=== PATIENT | female | born 1990 | race American Indian/Alaskan Native ===

== ENCOUNTER 2016-08-31 09:04 | Emergency (ER) | payer SELFPAY ==
[2016-08-31 10:03] VITALS: BP 114/71
[2016-08-31 12:36] LABS: Bacteria,Urine 1+ /HPF (Negative); Bilirubin,Urine NEG (Negative); Blood,Urine SM (Negative); Ketones,Urine NEG (Negative); Leukocyte Esterase,Urine LG (Negative); Mucus,Urine 2+ /HPF; Nitrite,Urine NEG (Negative); Urobilinogen,Urine < 2.0 mg/dL (<2.0)
--- NOTE | 2016-08-31 13:53 | Emergency Department Report ---
<ALEXANDRE BRUCE - Last Filed: 08/31/16 17:48> ED Female HPI - General Chief complaint: Urogenital-Female Stated complaint: URINATION PAIN Time Seen by Provider: 08/31/16 13:48 Source: patient Mode of arrival: Ambulatory Limitations: No Limitations - History of Present Illness Complaint: dysuria -: Gradual, days(s) Radiation: suprapubic Severity: mild Severity scale (0 -10): 3 Quality: burning Consistency: intermittent Worsens with: urination Associated Symptoms: dysuria. denies: vaginal discharge, vaginal bleeding, abdominal pain, nausea/vomiting, fever/chills, rash - Related Data Previous Rx's Medication Instructions Recorded Last Taken Type HYDROcodone/APAP 5-325 [[place] 1 each PO Q6HR PRN #14 tablet 11/29/14 Unknown Rx 5/325] Ferrous Sulfate [Feosol 325 MG tab] 325 mg PO BID #120 tablet 01/09/15 Unknown Rx Ibuprofen [Motrin 600 MG tab] 600 mg PO Q6H PRN #30 tablet 01/09/15 Unknown Rx oxyCODONE /ACETAMINOPHEN [Percocet 1 tab PO Q4HR PRN #40 tab 01/09/15 Unknown Rx 5/325 mg] Docusate Sodium [Colace] 100 mg PO BID PRN #60 capsule 02/28/16 Unknown Rx Ibuprofen [Motrin] 800 mg PO Q8HR PRN #60 tablet 02/28/16 Unknown Rx oxyCODONE /ACETAMINOPHEN [Percocet 1 tab PO Q6HR PRN #45 tablet 02/28/16 Unknown Rx 5/325] Phenazopyridine [Pyridium] 200 mg PO BID #10 tab 08/31/16 Unknown Rx Sulfamethoxazole/Trimethoprim 1 each PO BID #10 tablet 08/31/16 Unknown Rx [Bactrim DS TAB] Allergies Allergy/AdvReac Type Severity Reaction Status Date / Time No Known Allergies Allergy Verified 07/18/14 18:20 ED Review of Systems ROS: Stated complaint: URINATION PAIN Other details as noted in HPI Constitutional: no symptoms reported Eyes: as per HPI ENT: as per HPI Respiratory: no symptoms reported Gastrointestinal: denies: nausea, vomiting, diarrhea Genitourinary: dysuria. denies: discharge Musculoskeletal: denies: back pain Skin: denies: rash Neurological: denies: headache ED Past Medical Hx - Past Medical History Previous Medical History?: No Hx Hypertension: No Hx Congestive Heart Failure: No Hx Diabetes: No Hx Deep Vein Thrombosis: No Hx Renal Disease: No Hx Sickle Cell Disease: No Hx Seizures: No Hx Asthma: No Hx COPD: No Hx HIV: No - Surgical History Past Surgical History?: Yes Additional Surgical History: X 3 - Social History Smoking Status: Never Smoker Substance Use Type: None - Medications Home Medications: Home Medications Medication Instructions Recorded Confirmed Last Taken Type HYDROcodone/APAP 5-325 [[place] 1 each PO Q6HR PRN #14 tablet 11/29/14 01/07/15 Unknown Rx 5/325] Ferrous Sulfate [Feosol 325 MG tab] 325 mg PO BID #120 tablet 01/09/15 Unknown Rx Ibuprofen [Motrin 600 MG tab] 600 mg PO Q6H PRN #30 tablet 01/09/15 Unknown Rx oxyCODONE /ACETAMINOPHEN [Percocet 1 tab PO Q4HR PRN #40 tab 01/09/15 Unknown Rx 5/325 mg] Docusate Sodium [Colace] 100 mg PO BID PRN #60 capsule 02/28/16 Unknown Rx Ibuprofen [Motrin] 800 mg PO Q8HR PRN #60 tablet 02/28/16 Unknown Rx oxyCODONE /ACETAMINOPHEN [Percocet 1 tab PO Q6HR PRN #45 tablet 02/28/16 Unknown Rx 5/325] Phenazopyridine [Pyridium] 200 mg PO BID #10 tab 08/31/16 Unknown Rx Sulfamethoxazole/Trimethoprim 1 each PO BID #10 tablet 08/31/16 Unknown Rx [Bactrim DS TAB] ED Physical Exam - General Limitations: No Limitations General appearance: alert, in no apparent distress - Eye Eye exam: Present: PERRL, EOMI - ENT ENT exam: Present: normal exam - Neck Neck exam: Present: normal inspection - Respiratory Respiratory exam: Absent: respiratory distress - Cardiovascular Cardiovascular Exam: Present: regular rate - GI/Abdominal GI/Abdominal exam: Present: soft. Absent: distended, tenderness, guarding, rebound, rigid ED Course Vital Signs 08/31/16 10:00 Temperature 98.7 F Pulse Rate 89 Respiratory 18 Rate Blood Pressure 114/71 O2 Sat by Pulse 99 Oximetry Critical care attestation.: If time is entered above; I have spent that time in minutes in the direct care of this critically ill patient, excluding procedure time. ED Disposition Disposition: DISCHARGED TO HOME OR SELFCARE Is pt being admited?: No Condition: Stable Instructions: Urinary Tract Infection in Women (ED) Prescriptions: Phenazopyridine [Pyridium] 200 mg PO BID #10 tab Sulfamethoxazole/Trimethoprim [Bactrim DS TAB] 1 each PO BID #10 tablet Referrals: PRIMARY CARE, [Primary Care Provider] - 3-5 Days Forms: Work/School Release Form(ED) <SARINA SHEETS - Last Filed: 09/01/16 19:20> ED Medical Decision Making - Lab Data Lab Results 08/31/16 Range/Units 11:22 Urine Color Yellow (Yellow) Urine Turbidity Slightly-cloudy (Clear) Urine pH 6.0 (5.0-7.0) Ur Specific [place] 1.029 (1.003-1.030) Urine Protein 30 mg/dl (Negative) mg/dL Urine Glucose (UA) Neg (Negative) mg/dL Urine Ketones Neg (Negative) mg/dL Urine Blood Sm (Negative) Urine Nitrite Neg (Negative) Ur Reducing Substances Not Reportable Urine Bilirubin Neg (Negative) Urine Ictotest Not Reportable Urine Urobilinogen < 2.0 (<2.0) mg/dL Ur Leukocyte Esterase Lg (Negative) Urine WBC (Auto) 68.0 H (0.0-6.0) /HPF Urine RBC (Auto) 6.0 (0.0-6.0) /HPF U Epithel Cells (Auto) 6.0 (0-13.0) /HPF Urine Bacteria (Auto) 1+ (Negative) /HPF Urine Mucus 2+ /HPF Urine HCG, Qual Negative (Negative) Labs 08/31/16 11:22 Urine Color Yellow Urine Turbidity Slightly-cloudy Urine pH 6.0 Ur Specific [place] 1.029 Urine Protein 30 mg/dl Urine Glucose (UA) Neg Urine Ketones Neg Urine Blood Sm Urine Nitrite Neg Ur Reducing Substances Not Reportable Urine Bilirubin Neg Urine Ictotest Not Reportable Urine Urobilinogen < 2.0 Ur Leukocyte Esterase Lg Urine WBC (Auto) 68.0 H Urine RBC (Auto) 6.0 U Epithel Cells (Auto) 6.0 Urine Bacteria (Auto) 1+ Urine Mucus 2+ Urine HCG, Qual Negative Vital Signs 08/31/16 10:00 Temperature 98.7 F Pulse Rate 89 Respiratory 18 Rate Blood Pressure 114/71 O2 Sat by Pulse 99 Oximetry
== END 2016-08-31 14:10 | disposition home or self-care (01) ==
LOC: ED 09:04
DX: R30.0 Dysuria (principal)
CPT/HCPCS: 81001; 81025; 99282

== ENCOUNTER 2016-11-30 18:11 | Emergency (ER) | payer SELFPAY ==
[2016-11-30 18:57] VITALS: BP 111/65
[2016-11-30] MEDS ORDERED: TYLENOL PO ONE (18:58)
--- NOTE | 2016-12-05 16:51 | ED Elopement Review ---
ED Pt Elopement review - Call Back decision Pt Call Back Decision: No action required
== END 2016-11-30 21:30 | disposition left against medical advice (07) ==
LOC: ED 18:11
DX: Z53.21 Procedure and treatment not carried out due to patient leaving prior to being seen by health care provider (principal)

== ENCOUNTER 2017-06-23 09:38 | Emergency (ER) | payer SELFPAY ==
[2017-06-23 09:52] VITALS: BP 108/61
[2017-06-23 10:11] LABS: Basophils % (Auto) 0.4 % (0.0-1.8); Eosinophils % (Auto) 0.4 % (0.0-4.3); Hematocrit 39.1 % (30.3-42.9); Hemoglobin 12.7 gm/dl (10.1-14.3); Lymphocytes # (Auto) 2.3 K/mm3 (1.2-5.4); Mean Corpuscular HGB Conc 32 % (30-34); Mean Corpuscular Volume 79 fl (79-97); Monocytes % (Auto) 9.9 % (0.0-7.3); Platelet Count 387 K/mm3 (140-440); Red Blood Count 4.96 M/mm3 (3.65-5.03); Red Cell Distribution Width 15.2 % (13.2-15.2)
[2017-06-23 10:15] LABS: Mean Corpuscular Hemoglobin 26 pg (28-32)
[2017-06-23 10:23] LABS: BUN/Creatinine Ratio 22; Blood Urea Nitrogen 11 mg/dL (7-17); Calcium 9.3 mg/dL (8.4-10.2); Hemolysis Index 3; Lipase 22 units/L (13-60)
[2017-06-23 11:40] LABS: Bilirubin,Urine NEG (Negative); Blood,Urine NEG (Negative); Color,Urine Yellow (Yellow); Mucus,Urine 1+ /HPF; Nitrite,Urine NEG (Negative); Protein,Urine <15 mg/dL mg/dL (Negative); Urobilinogen,Urine < 2.0 mg/dL (<2.0)
[2017-06-23 11:46] LABS: HCG Qualitative,Urine Negative (Negative)
== END 2017-06-23 14:20 | disposition left against medical advice (07) ==
LOC: ED 09:38
DX: R11.10 Vomiting, unspecified (principal); Z53.21 Procedure and treatment not carried out due to patient leaving prior to being seen by health care provider
CPT/HCPCS: 36415; 80048; 81001; 81025; 83690; 85025

== ENCOUNTER 2017-07-06 11:33 | Emergency (ER) | payer SELFPAY ==
[2017-07-06 12:46] VITALS: BP 114/58
--- NOTE | 2017-07-06 15:00 | Emergency Department Report ---
Blank Doc - Documentation Documentation: Patient is a 26-year-old [place] female who is presenting with sore throat cough congestion for the past 3-4 days. Patient's daughter is ill as well. Patient does have some mild erythema to the posterior pharynx with no exudate there is some mild swelling however. Patient will have a rapid strep done
--- NOTE | 2017-07-06 16:27 | Emergency Department Report ---
- General Chief Complaint: Sore Throat Stated Complaint: FLU LIKE SYMPTOMS Time Seen by Provider: 07/06/17 14:39 Source: patient Mode of arrival: Ambulatory Limitations: No Limitations - History of Present Illness Initial Comments: This is a 26-year-old female nontoxic, well nourished in appearance, no acute signs of distress presents to the ED with c/o of sore throat, productive cough, rhinorrhea, nasal congestion x2 days. Patient described productive cough is yellow/green mucous production. Patient denies any recent travels, long car, recent hospital stays. Patient denies any calf pain or calf tenderness. Patient denies any chest pain, short of breath, hoarseness, drooling, fever, chills, nausea, vomiting, hemoptysis, numbness, tingling, headache or stiff neck. Patient denies any drug allergies or past medical history. MD Complaint: cough, sore throat, rhinorrhea, nasal congestion -: days(s) (2) Severity: mild Severity scale (0 -10): 8 Quality: aching Consistency: constant Improves With: nothing Worsens With: nothing Associated Symptoms: rhinorrhea, nasal congestion, sore throat, cough. denies: fever, chills, myalgias, diaphoresis, headache, stiff neck, chest pain, shortness of breath, abdominal pain, nausea, vomiting, diarrhea, dysuria, rash, confusion, right sweats, weight loss, epistaxis, hoarseness, ear pain Treatments Prior to Arrival: none - Related Data Previous Rx's Medication Instructions Recorded Last Taken Type Ferrous Sulfate [Feosol 325 MG tab] 325 mg PO BID #120 tablet 01/09/15 Unknown Rx oxyCODONE /ACETAMINOPHEN [Percocet 1 tab PO Q4HR PRN #40 tab 01/09/15 Unknown Rx 5/325 mg] Docusate Sodium [Colace] 100 mg PO BID PRN #60 capsule 02/28/16 Unknown Rx Ibuprofen [Motrin] 800 mg PO Q8HR PRN #60 tablet 02/28/16 Unknown Rx oxyCODONE /ACETAMINOPHEN [Percocet 1 tab PO Q6HR PRN #45 tablet 02/28/16 Unknown Rx 5/325] Phenazopyridine [Pyridium] 200 mg PO BID #10 tab 08/31/16 Unknown Rx Sulfamethoxazole/Trimethoprim 1 each PO BID #10 tablet 08/31/16 Unknown Rx [Bactrim DS TAB] Amoxicillin/K Clav Tab [Augmentin 1 each PO BID #10 tablet 04/04/17 Unknown Rx 875MG TAB] HYDROcodone/APAP 5-325 [[place] 1 each PO Q6HR PRN #14 tablet 04/04/17 Unknown Rx 5-325 mg TAB] Ibuprofen [Motrin 600 MG tab] 600 mg PO Q6H PRN #30 tablet 04/04/17 Unknown Rx metroNIDAZOLE [Flagyl TAB] 500 mg PO Q8H 5 Days tablet 04/04/17 Unknown Rx Azithromycin [Zithromax Z-SUSANNA] 250 mg PO DAILY #6 tablet 07/06/17 Unknown Rx Nystas/Diphen/Xyl Visc/Mylanta 30 ml MM Q4H PRN 10 Days ml 07/06/17 Unknown Rx [Magic Mouthwash] Allergies Allergy/AdvReac Type Severity Reaction Status Date / Time No Known Allergies Allergy Verified 04/04/17 12:57 ED Review of Systems ROS: Stated complaint: FLU LIKE SYMPTOMS Other details as noted in HPI Constitutional: denies: chills, fever Eyes: denies: eye pain, eye discharge, vision change ENT: throat pain. denies: ear pain Respiratory: cough. denies: shortness of breath, wheezing Cardiovascular: denies: chest pain, palpitations Endocrine: no symptoms reported Gastrointestinal: denies: abdominal pain, nausea, diarrhea Genitourinary: denies: urgency, dysuria, discharge Musculoskeletal: denies: back pain, joint swelling, arthralgia Skin: denies: rash, lesions Neurological: denies: headache, weakness, paresthesias Psychiatric: denies: anxiety, depression Hematological/Lymphatic: denies: easy bleeding, easy bruising ED Past Medical Hx - Past Medical History Hx Hypertension: No Hx Congestive Heart Failure: No Hx Diabetes: No Hx Deep Vein Thrombosis: No Hx Renal Disease: No Hx Sickle Cell Disease: No Hx Seizures: No Hx Asthma: No Hx COPD: No Hx HIV: No Additional medical history: Childbirth x 4 - Surgical History Additional Surgical History: X 4 - Social History Smoking Status: Never Smoker Substance Use Type: None - Medications Home Medications: Home Medications Medication Instructions Recorded Confirmed Last Taken Type Ferrous Sulfate [Feosol 325 MG tab] 325 mg PO BID #120 tablet 01/09/15 Unknown Rx oxyCODONE /ACETAMINOPHEN [Percocet 1 tab PO Q4HR PRN #40 tab 01/09/15 Unknown Rx 5/325 mg] Docusate Sodium [Colace] 100 mg PO BID PRN #60 capsule 02/28/16 Unknown Rx Ibuprofen [Motrin] 800 mg PO Q8HR PRN #60 tablet 02/28/16 Unknown Rx oxyCODONE /ACETAMINOPHEN [Percocet 1 tab PO Q6HR PRN #45 tablet 02/28/16 Unknown Rx 5/325] Phenazopyridine [Pyridium] 200 mg PO BID #10 tab 08/31/16 Unknown Rx Sulfamethoxazole/Trimethoprim 1 each PO BID #10 tablet 08/31/16 Unknown Rx [Bactrim DS TAB] Amoxicillin/K Clav Tab [Augmentin 1 each PO BID #10 tablet 04/04/17 Unknown Rx 875MG TAB] HYDROcodone/APAP 5-325 [[place] 1 each PO Q6HR PRN #14 tablet 04/04/17 Unknown Rx 5-325 mg TAB] Ibuprofen [Motrin 600 MG tab] 600 mg PO Q6H PRN #30 tablet 04/04/17 Unknown Rx metroNIDAZOLE [Flagyl TAB] 500 mg PO Q8H 5 Days tablet 04/04/17 Unknown Rx Azithromycin [Zithromax Z-SUSANNA] 250 mg PO DAILY #6 tablet 07/06/17 Unknown Rx Nystas/Diphen/Xyl Visc/Mylanta 30 ml MM Q4H PRN 10 Days ml 07/06/17 Unknown Rx [Magic Mouthwash] ED Physical Exam - General Limitations: No Limitations General appearance: alert, in no apparent distress - Head Head exam: Present: atraumatic, normocephalic - Eye Eye exam: Present: normal appearance, PERRL, EOMI Pupils: Present: normal accommodation - ENT ENT exam: Present: mucous membranes moist, TM's normal bilaterally, normal external ear exam - Expanded ENT Exam Expanded Ear exam: Present: normal external inspection Mouth exam: Present: normal external inspection, tongue normal. Absent: drooling, trismus, muffled voice, tongue elevation, laceration Teeth exam: Present: normal inspection Throat exam: Positive: tonsillar erythema, tonsillomegaly (2+), other (Uvula midline. No abscess or swelling. ). Negative: tonsillar exudate, R peritonsillar mass, L peritonsillar mass - Neck Neck exam: Present: normal inspection, full ROM. Absent: tenderness, meningismus, lymphadenopathy, thyromegaly - Respiratory Respiratory exam: Present: normal lung sounds bilaterally. Absent: respiratory distress, wheezes, rales, rhonchi, stridor, chest wall tenderness, accessory muscle use, decreased breath sounds, prolonged expiratory - Cardiovascular Cardiovascular Exam: Present: regular rate, normal rhythm, normal heart sounds. Absent: irregular rhythm, systolic murmur, diastolic murmur, rubs, gallop - GI/Abdominal GI/Abdominal exam: Present: soft, normal bowel sounds. Absent: distended, tenderness, guarding, rebound, rigid, diminished bowel sounds - Rectal Rectal exam: Present: deferred - Extremities Exam Extremities exam: Present: normal inspection, full ROM, normal capillary refill. Absent: tenderness, pedal edema, joint swelling, calf tenderness - Back Exam Back exam: Present: normal inspection, full ROM. Absent: tenderness, CVA tenderness (R), CVA tenderness (L), muscle spasm, paraspinal tenderness, vertebral tenderness, rash noted - Neurological Exam Neurological exam: Present: alert, oriented X3, CN II-XII intact, normal gait, reflexes normal - Psychiatric Psychiatric exam: Present: normal affect, normal mood - Skin Skin exam: Present: warm, dry, intact, normal color. Absent: rash ED Course Vital Signs 07/06/17 12:44 Temperature 97.7 F Pulse Rate 91 H Respiratory 18 Rate Blood Pressure 114/58 O2 Sat by Pulse 98 Oximetry - Reevaluation(s) Reevaluation #1: 07/06/17 16:27 Patient is speaking in full sentences with no signs of distress noted. - Consultations Consultation #1: 07/06/17 16:29 Patient has been consulted with Dr. Novoa about patient history, physical exam , and labs and examined and screened patient and agrees to ED plan of care and discharge plan of care. ED Medical Decision Making - Medical Decision Making This is a 26-year-old female that presents with upper respiratory infection and tonsillitis. Patient is stable and was examined by me. Strep swab negative. Due to patient having symptoms of upper respiratory infection and tonsillitis I will treat patient empirically with zpak. Patient was instructed to increase hydration, rest and take Motrin for fever episodes. Patient received Motrin in the ED. Vitals stable. Patient is nonfebrile and normal heart rate. Patient was orally hydrated and patient tolerated well known nausea or vomiting. Patient was instructed Follow-up with a primary care doctor in 24 hours or if symptoms worsen and continue return to emergency room as soon as possible. At time time of discharge, the patient does not seem toxic or ill in appearance. No acute signs of distress noted. Patient agrees to discharge treatment plan of care. No further questions noted by the patient. Critical care attestation.: If time is entered above; I have spent that time in minutes in the direct care of this critically ill patient, excluding procedure time. ED Disposition Clinical Impression: Tonsillitis Upper respiratory infection Qualifiers: URI type: unspecified URI Qualified Code(s): J06.9 - Acute upper respiratory infection, unspecified Disposition: - TO HOME OR SELFCARE Is pt being admited?: No Does the pt Need Aspirin: No Condition: Stable Instructions: Tonsillitis (ED), Azithromycin (By mouth) Additional Instructions: Follow-up with a primary care doctor in 3-5 days or if symptoms worsen and continue return to emergency room as soon as possible. Prescriptions: Azithromycin [Zithromax Z-SUSANNA] 250 mg PO DAILY #6 tablet Nystas/Diphen/Xyl Visc/Mylanta [Magic Mouthwash] 30 ml MM Q4H PRN 10 Days ml PRN Reason: Sore Throat Referrals: PRIMARY CARE, [Primary Care Provider] - 3-5 Days NILTON HAMILTON MD [Staff Physician] - 3-5 Days [facility] [Outside] - 3-5 Days [facility] [Outside] - 3-5 Days Forms: Work/School Release Form(ED)
== END 2017-07-06 16:47 | disposition home or self-care (01) ==
LOC: ED 11:33
DX: J06.9 Acute upper respiratory infection, unspecified (principal); J03.90 Acute tonsillitis, unspecified
CPT/HCPCS: 87116; 87430; 99283

== ENCOUNTER 2018-10-21 16:08 | Emergency (ER) | payer SELFPAY ==
--- NOTE | 2018-10-21 16:28 | Emergency Department Report ---
Blank Doc - Documentation Documentation: pt presents with sore throat that began two days ago hurts to swallow bilateral ear pain +subjective fever no cough no rhinorrhea daughter has strep throat no PMHx no allergies to medications non smoker non drinker no drug use
[2018-10-21 16:30] VITALS: BP 130/73
[2018-10-21] MEDS ORDERED: DECADRON PO ONE (21:02)
[2018-10-21] MEDS ORDERED: BICILLIN L-A IM STA (21:02)
--- NOTE | 2018-10-21 21:12 | Emergency Department Report ---
ED ENT HPI - General Chief complaint: Sore Throat Stated complaint: SORE THROAT/SORE BODY Time Seen by Provider: 10/21/18 16:27 Source: patient Mode of arrival: Ambulatory Limitations: No Limitations - History of Present Illness MD complaint: sore throat -: days(s) (2) Location: throat Severity: mild Quality: dull Consistency: constant Improves with: none Worsens with: eating Associated Symptoms: pain with swallowing, sore throat. denies: gum swelling, toothache, tinnitus, discharge from ear, rhinorrhea - Related Data Previous Rx's Medication Instructions Recorded Last Taken Type Ferrous Sulfate [Feosol 325 MG tab] 325 mg PO BID #120 tablet 01/09/15 Unknown Rx oxyCODONE /ACETAMINOPHEN [Percocet 1 tab PO Q4HR PRN #40 tab 01/09/15 Unknown Rx 5/325 mg] Docusate Sodium [Colace] 100 mg PO BID PRN #60 capsule 02/28/16 Unknown Rx oxyCODONE /ACETAMINOPHEN [Percocet 1 tab PO Q6HR PRN #45 tablet 02/28/16 Unknown Rx 5/325] Phenazopyridine [Pyridium] 200 mg PO BID #10 tab 08/31/16 Unknown Rx Amoxicillin/K Clav Tab [Augmentin 1 each PO BID #10 tablet 04/04/17 Unknown Rx 875MG TAB] HYDROcodone/APAP 5-325 [[place] 1 each PO Q6HR PRN #14 tablet 04/04/17 Unknown Rx 5-325 mg TAB] Ibuprofen [Motrin 600 MG tab] 600 mg PO Q6H PRN #30 tablet 04/04/17 Unknown Rx metroNIDAZOLE [Flagyl TAB] 500 mg PO Q8H 5 Days tablet 04/04/17 Unknown Rx Azithromycin [Zithromax Z-SUSANNA] 250 mg PO DAILY #6 tablet 07/06/17 Unknown Rx Nystas/Diphen/Xyl Visc/Mylanta 30 ml MM Q4H PRN 10 Days ml 07/06/17 Unknown Rx [Magic Mouthwash] Ibuprofen [Motrin 800 MG tab] 800 mg PO Q8HR PRN #60 tablet 04/20/18 Unknown Rx Sulfamethoxazole/Trimethoprim 1 each PO BID #10 tablet 04/20/18 Unknown Rx [Bactrim DS TAB] Ibuprofen [Motrin 800 MG tab] 800 mg PO Q8HR PRN #20 tablet 05/07/18 Unknown Rx Sulfamethoxazole/Trimethoprim 1 each PO BID #14 tablet 05/07/18 Unknown Rx [Bactrim DS TAB] Tramadol HCl [Ultram] 50 mg PO Q6H PRN #10 tablet 05/07/18 Unknown Rx Chlorhexidine Mouthwash [Peridex] 15 ml MM BID #473 bottle 10/21/18 Unknown Rx Lidocaine Viscous 2% 5 ml MM Q3H PRN #120 udc 10/21/18 Unknown Rx Allergies Allergy/AdvReac Type Severity Reaction Status Date / Time No Known Allergies Allergy Verified 10/21/18 16:10 ED Dental HPI - General Chief complaint: Sore Throat Stated complaint: SORE THROAT/SORE BODY Time Seen by Provider: 10/21/18 16:27 Source: patient Mode of arrival: Ambulatory Limitations: No Limitations - History of Present Illness MD complaint: sore throat Severity: mild Quality: dull Consistency: constant - Related Data Previous Rx's Medication Instructions Recorded Last Taken Type Ferrous Sulfate [Feosol 325 MG tab] 325 mg PO BID #120 tablet 01/09/15 Unknown Rx oxyCODONE /ACETAMINOPHEN [Percocet 1 tab PO Q4HR PRN #40 tab 01/09/15 Unknown Rx 5/325 mg] Docusate Sodium [Colace] 100 mg PO BID PRN #60 capsule 02/28/16 Unknown Rx oxyCODONE /ACETAMINOPHEN [Percocet 1 tab PO Q6HR PRN #45 tablet 02/28/16 Unknown Rx 5/325] Phenazopyridine [Pyridium] 200 mg PO BID #10 tab 08/31/16 Unknown Rx Amoxicillin/K Clav Tab [Augmentin 1 each PO BID #10 tablet 04/04/17 Unknown Rx 875MG TAB] HYDROcodone/APAP 5-325 [[place] 1 each PO Q6HR PRN #14 tablet 04/04/17 Unknown Rx 5-325 mg TAB] Ibuprofen [Motrin 600 MG tab] 600 mg PO Q6H PRN #30 tablet 04/04/17 Unknown Rx metroNIDAZOLE [Flagyl TAB] 500 mg PO Q8H 5 Days tablet 04/04/17 Unknown Rx Azithromycin [Zithromax Z-SUSANNA] 250 mg PO DAILY #6 tablet 07/06/17 Unknown Rx Nystas/Diphen/Xyl Visc/Mylanta 30 ml MM Q4H PRN 10 Days ml 07/06/17 Unknown Rx [Magic Mouthwash] Ibuprofen [Motrin 800 MG tab] 800 mg PO Q8HR PRN #60 tablet 04/20/18 Unknown Rx Sulfamethoxazole/Trimethoprim 1 each PO BID #10 tablet 04/20/18 Unknown Rx [Bactrim DS TAB] Ibuprofen [Motrin 800 MG tab] 800 mg PO Q8HR PRN #20 tablet 05/07/18 Unknown Rx Sulfamethoxazole/Trimethoprim 1 each PO BID #14 tablet 05/07/18 Unknown Rx [Bactrim DS TAB] Tramadol HCl [Ultram] 50 mg PO Q6H PRN #10 tablet 05/07/18 Unknown Rx Chlorhexidine Mouthwash [Peridex] 15 ml MM BID #473 bottle 10/21/18 Unknown Rx Lidocaine Viscous 2% 5 ml MM Q3H PRN #120 udc 10/21/18 Unknown Rx Allergies Allergy/AdvReac Type Severity Reaction Status Date / Time No Known Allergies Allergy Verified 10/21/18 16:10 ED Review of Systems ROS: Stated complaint: SORE THROAT/SORE BODY Other details as noted in HPI Constitutional: denies: chills, fever Eyes: denies: eye pain, eye discharge, vision change ENT: throat pain. denies: ear pain Respiratory: denies: cough, shortness of breath, wheezing Cardiovascular: denies: chest pain, palpitations Endocrine: no symptoms reported Gastrointestinal: denies: abdominal pain, nausea, diarrhea Genitourinary: denies: urgency, dysuria, discharge Musculoskeletal: denies: back pain, joint swelling, arthralgia Skin: denies: rash, lesions Neurological: denies: headache, weakness, paresthesias Psychiatric: denies: anxiety, depression Hematological/Lymphatic: denies: easy bleeding, easy bruising ED Past Medical Hx - Past Medical History Hx Hypertension: No Hx Congestive Heart Failure: No Hx Diabetes: No Hx Deep Vein Thrombosis: No Hx Renal Disease: No Hx Sickle Cell Disease: No Hx Seizures: No Hx Asthma: No Hx COPD: No Hx HIV: No Additional medical history: Childbirth x 4 - Surgical History Additional Surgical History: X 4 - Social History Smoking Status: Never Smoker Substance Use Type: None - Medications Home Medications: Home Medications Medication Instructions Recorded Confirmed Last Taken Type Ferrous Sulfate [Feosol 325 MG tab] 325 mg PO BID #120 tablet 01/09/15 Unknown Rx oxyCODONE /ACETAMINOPHEN [Percocet 1 tab PO Q4HR PRN #40 tab 01/09/15 Unknown Rx 5/325 mg] Docusate Sodium [Colace] 100 mg PO BID PRN #60 capsule 02/28/16 Unknown Rx oxyCODONE /ACETAMINOPHEN [Percocet 1 tab PO Q6HR PRN #45 tablet 02/28/16 Unknown Rx 5/325] Phenazopyridine [Pyridium] 200 mg PO BID #10 tab 08/31/16 Unknown Rx Amoxicillin/K Clav Tab [Augmentin 1 each PO BID #10 tablet 04/04/17 Unknown Rx 875MG TAB] HYDROcodone/APAP 5-325 [[place] 1 each PO Q6HR PRN #14 tablet 04/04/17 Unknown Rx 5-325 mg TAB] Ibuprofen [Motrin 600 MG tab] 600 mg PO Q6H PRN #30 tablet 04/04/17 Unknown Rx metroNIDAZOLE [Flagyl TAB] 500 mg PO Q8H 5 Days tablet 04/04/17 Unknown Rx Azithromycin [Zithromax Z-SUSANNA] 250 mg PO DAILY #6 tablet 07/06/17 Unknown Rx Nystas/Diphen/Xyl Visc/Mylanta 30 ml MM Q4H PRN 10 Days ml 07/06/17 Unknown Rx [Magic Mouthwash] Ibuprofen [Motrin 800 MG tab] 800 mg PO Q8HR PRN #60 tablet 04/20/18 Unknown Rx Sulfamethoxazole/Trimethoprim 1 each PO BID #10 tablet 04/20/18 Unknown Rx [Bactrim DS TAB] Ibuprofen [Motrin 800 MG tab] 800 mg PO Q8HR PRN #20 tablet 05/07/18 Unknown Rx Sulfamethoxazole/Trimethoprim 1 each PO BID #14 tablet 05/07/18 Unknown Rx [Bactrim DS TAB] Tramadol HCl [Ultram] 50 mg PO Q6H PRN #10 tablet 05/07/18 Unknown Rx Chlorhexidine Mouthwash [Peridex] 15 ml MM BID #473 bottle 10/21/18 Unknown Rx Lidocaine Viscous 2% 5 ml MM Q3H PRN #120 udc 10/21/18 Unknown Rx ED Physical Exam - General Limitations: No Limitations General appearance: alert, in no apparent distress - Head Head exam: Present: atraumatic, normocephalic - Eye Eye exam: Present: normal appearance, PERRL, EOMI Pupils: Present: normal accommodation - ENT ENT exam: Present: mucous membranes moist, other (pharynx red with erythema, swelling to the left with some exudate. No evidence of any peritonsillar abscess noted. Airway is patent. Tongue and uvula are midline) - Neck Neck exam: Present: normal inspection, full ROM - Respiratory Respiratory exam: Present: normal lung sounds bilaterally. Absent: respiratory distress, wheezes, rales, chest wall tenderness, accessory muscle use, decreased breath sounds - Cardiovascular Cardiovascular Exam: Present: regular rate, normal rhythm. Absent: systolic murmur, diastolic murmur, rubs, gallop - GI/Abdominal GI/Abdominal exam: Present: soft, normal bowel sounds. Absent: distended, tenderness, hyperactive bowel sounds, hypoactive bowel sounds - Extremities Exam Extremities exam: Present: normal inspection - Back Exam Back exam: Present: normal inspection - Neurological Exam Neurological exam: Present: alert, oriented X3 - Psychiatric Psychiatric exam: Present: normal affect, normal mood - Skin Skin exam: Present: warm, dry, intact, normal color. Absent: rash ED Course Vital Signs 10/21/18 16:28 Temperature 98.1 F Pulse Rate 93 H Respiratory 16 Rate Blood Pressure 130/73 [Left] O2 Sat by Pulse 98 Oximetry Critical care attestation.: If time is entered above; I have spent that time in minutes in the direct care of this critically ill patient, excluding procedure time. ED Disposition Clinical Impression: Pharyngitis, Strep pharyngitis Disposition: TO HOME OR SELFCARE Is pt being admited?: No Does the pt Need Aspirin: No Condition: Stable Instructions: Strep Throat (ED), Tonsillitis (ED) Referrals: PEREZ BROWN MD [Primary Care Provider] - 3-5 Days
== END 2018-10-21 21:41 | disposition home or self-care (01) ==
LOC: ED 16:08
DX: J02.0 Streptococcal pharyngitis (principal); Z79.899 Other long term (current) drug therapy
CPT/HCPCS: 87430; 96372; 99283; J0561; J1100

== ENCOUNTER 2019-04-17 10:40 | Emergency (ER) | payer SELFPAY ==
[2019-04-17 11:23] VITALS: BP 120/67
--- NOTE | 2019-04-17 11:27 | Emergency Department Report ---
Chief Complaint: Skin/Abscess/Foreign Body Stated Complaint: POSS LICE INFECTION Time Seen by Provider: 04/17/19 11:21 - HPI History of Present Illness: This is a 28 y.o. F. that presents to the ER for clearance to return to work. Patient states her youngest daughter was diagnosed with lice and her job made her stay off work until she medically cleared. Patient reports treating everyone in house with lice treatment including herself. States she pulled several lice out of her youngest daughter head but didn't see anything on anyone else in home. - Exam Vital Signs: Vital Signs 04/17/19 11:22 Temperature 97.9 F Pulse Rate 98 H Respiratory 18 Rate Blood Pressure 120/67 O2 Sat by Pulse 98 Oximetry MSE screening note: Focused history and physical exam performed. Due to findings the following was ordered: ED Medical Decision Making - Medical Decision Making This is a 28-year-old female that presents to ER for medical clearance. Patient is stable was examined by me. Vitals are stable and patient in no acute distress. So signs of lice on exam. Patient was referred to Follow-up with a primary care doctor or health department because this is a non-emergent complaint. At time of discharge, the patient does not seem toxic or ill in appearance. Patient agrees to discharge treatment plan of care. No further questions noted by the patient. ED Disposition for MSE Clinical Impression: Feared complaint without diagnosis Disposition: DC-01 TO HOME OR SELFCARE Is pt being admited?: No Condition: Stable Instructions: Head lice in Children (ED) Referrals: [facility] [Outside] - 3-5 Days [facility] [Outside] - 3-5 Days [facility] [Outside] - 3-5 Days [facility] [Outside] - 3-5 Days Forms: Work/School Release Form(ED) Time of Disposition: 12:26
== END 2019-04-17 12:46 | disposition home or self-care (01) ==
LOC: ED 10:40
DX: Z71.1 Person with feared health complaint in whom no diagnosis is made (principal)
CPT/HCPCS: 99282

== ENCOUNTER 2020-10-14 21:15 | Emergency (ER) | payer SELFPAY ==
[2020-10-14 21:29] VITALS: BP 138/71
[2020-10-14] MEDS ORDERED: IBUPROFEN 600 MG TAB PO ONE (21:31)
[2020-10-14] MEDS ORDERED: ACETAMINOPHEN 500 MG TAB PO ONE (21:31)
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
== END 2020-10-14 22:30 | disposition home or self-care (01) ==
LOC: ED 21:15
DX: S56.812A Strain of other muscles, fascia and tendons at forearm level, left arm, initial encounter (principal); S66.812A Strain of other specified muscles, fascia and tendons at wrist and hand level, left hand, initial encounter; Z98.890 Other specified postprocedural states; Z79.899 Other long term (current) drug therapy; V89.2XXA Person injured in unspecified motor-vehicle accident, traffic, initial encounter; Y93.89 Activity, other specified; Y92.488 Other paved roadways as the place of occurrence of the external cause; Y99.8 Other external cause status
CPT/HCPCS: 99283

== ENCOUNTER 2021-03-20 09:36 | Emergency (ER) | payer SELFPAY ==
[2021-03-20 09:44] VITALS: BP 122/64
[2021-03-20] MEDS ORDERED: ACETAMINOPHEN 325 MG TAB PO ONE (10:23)
--- NOTE | 2021-03-20 10:24 | Emergency Department Report ---
- General Chief Complaint: Headache Stated Complaint: HEADACHES PUI?: Yes Time Seen by Provider: 03/20/21 10:11 Source: patient Mode of arrival: Ambulatory Limitations: No Limitations - History of Present Illness Initial Comments: 30 year old female who denies any significant pmhx presents to ED with complaints of flulike symptoms. Patient states her symptoms started a couple days ago. She complains of headache, generalized body aches, intermittent episodes of diaphoresis and chills. She denies any cough, runny nose, nasal congestion, shortness of breath, chest pain, abdominal pain, vomiting or diarrhea. She denies any apparent ill contacts or recent travel. She reports urinary frequency but no other UTI symptoms. Last menstrual cycle was February 14, 2021. She is not currently on any control. She has not taken a COVID 19 test she has been sick and she has not gotten any of the COVID 10 vaccines. She states she has been taking OTC nyquil and advil without much relief of her headache. MD Complaint: other (Headache, Bodyaches, diaphoresis, chills ) -: Gradual, days(s) - Related Data Previous Rx's Medication Instructions Recorded Last Taken Type Ketorolac [Toradol] 10 mg PO Q6H PRN #20 tablet 03/20/21 Unknown Rx cephALEXin [Keflex] 500 mg PO Q6HR #40 capsule 03/20/21 Unknown Rx Allergies Allergy/AdvReac Type Severity Reaction Status Date / Time No Known Allergies Allergy Verified 03/20/21 09:37 ED Review of Systems ROS: Stated complaint: HEADACHES Other details as noted in HPI Comment: All other systems reviewed and negative Constitutional: chills, diaphoresis. denies: fever Eyes: denies: eye pain, eye discharge, vision change ENT: denies: ear pain, throat pain, dental pain, hearing loss, epistaxis, congestion Respiratory: denies: cough, orthopnea, shortness of breath, SOB with exertion, SOB at rest, wheezing Cardiovascular: denies: chest pain, palpitations, dyspnea on exertion, edema, syncope, paroxysmal nocturnal dyspnea Gastrointestinal: denies: abdominal pain, nausea, diarrhea, constipation, hematemesis, hematochezia Genitourinary: denies: urgency, dysuria, frequency, hematuria, discharge, abnormal menses, dyspareunia Musculoskeletal: myalgia. denies: back pain, joint swelling, arthralgia Skin: denies: rash, lesions, change in color, change in hair/nails, pruritus Neurological: headache. denies: numbness, paresthesias, confusion, abnormal gait, vertigo Psychiatric: denies: anxiety, depression, auditory hallucinations, visual hallucinations, homicidal thoughts, suicidal thoughts Hematological/Lymphatic: denies: easy bleeding, easy bruising, swollen glands ED Past Medical Hx - Past Medical History Hx Hypertension: No Hx Congestive Heart Failure: No Hx Diabetes: No Hx Deep Vein Thrombosis: No Hx Renal Disease: No Hx Sickle Cell Disease: No Hx Seizures: No Hx Asthma: No Hx COPD: No Hx HIV: No Additional medical history: Childbirth x 4 - Surgical History Additional Surgical History: X 4 - Social History Smoking Status: Never Smoker - Medications Home Medications: Home Medications Medication Instructions Recorded Confirmed Last Taken Type Ketorolac [Toradol] 10 mg PO Q6H PRN #20 tablet 03/20/21 Unknown Rx cephALEXin [Keflex] 500 mg PO Q6HR #40 capsule 03/20/21 Unknown Rx ED Physical Exam - General Limitations: No Limitations General appearance: alert, in no apparent distress - Head Head exam: Present: atraumatic, normocephalic, normal inspection - Eye Eye exam: Present: normal appearance, PERRL, EOMI Pupils: Present: normal accommodation - ENT ENT exam: Present: normal exam, mucous membranes moist, TM's normal bilaterally - Neck Neck exam: Present: normal inspection, full ROM - Respiratory Respiratory exam: Present: normal lung sounds bilaterally. Absent: respiratory distress, wheezes, rales, rhonchi, stridor - Cardiovascular Cardiovascular Exam: Present: regular rate, normal rhythm, normal heart sounds - GI/Abdominal GI/Abdominal exam: Present: soft. Absent: distended, tenderness, guarding, rebound - Neurological Exam Neurological exam: Present: alert, oriented X3, CN II-XII intact, normal gait - Psychiatric Psychiatric exam: Present: normal affect, normal mood - Skin Skin exam: Present: intact ED Course Vital Signs 03/20/21 03/20/21 09:43 10:30 Temperature 98.7 F Pulse Rate 90 Respiratory 18 16 Rate Blood Pressure 122/64 O2 Sat by Pulse 97 Oximetry ED Medical Decision Making - Medical Decision Making 30 year old female who denies any significant pmhx presents to ED with complaints of flulike symptoms. Patient states her symptoms started a couple days ago. She complains of headache, generalized body aches, intermittent episodes of diaphoresis and chills. She denies any cough, runny nose, nasal congestion, shortness of breath, chest pain, abdominal pain, vomiting or diarrhea. She denies any apparent ill contacts or recent travel. She reports urinary frequency but no other UTI symptoms. Last menstrual cycle was February 14, 2021. She is not currently on any control. She has not taken a COVID 19 test she has been sick and she has not gotten any of the COVID 10 vaccines. She states she has been taking OTC nyquil and advil without much relief of her headache. Patient urinalysis, positive for UTI. Patient currently resting comfortably in the recliner. She has been observed playing on her phone since she has been in the ER. She is not toxic or ill-appearing. She is neurologically intact with a normal gait. She is mentally stable. No meningeal signs on exam. Chest is clear to auscultation. Abdomen is soft and nontender. No CVA tenderness. Vital signs are stable. Discussed urinalysis results with patient. Patient symptoms could likely be related to her UTI, but did recommend an outpatient COVID-19 test especially if her job requires it. Patient will be discharged with prescription for antibiotics and medication to help with pain. Discussed all instructions and treatment plan with patient. She expressed understanding of all instructions and agree with plan. Patient was stable at time of discharge. Critical care attestation.: If time is entered above; I have spent that time in minutes in the direct care of this critically ill patient, excluding procedure time. ED Disposition Clinical Impression: UTI (urinary tract infection) Disposition: HOME / SELF CARE / HOMELESS Is pt being admited?: No Does the pt Need Aspirin: No Condition: Stable Instructions: Urinary Tract Infection, Adult Additional Instructions: It is important that you take the Keflex and take it all to completion. I also recommend that you increase your water intake. Take the Toradol as prescribed to help with any pain. I also recommend taking a COVID-19 test to rule that out as a possibility as well. Recommend that you quarantine until you get the results of the COVID-19 test. Follow-up closely with your PCP in the next week. Return to the ER if your symptoms worsens or changes in any way. Prescriptions: cephALEXin [Keflex] 500 mg PO Q6HR #40 capsule Ketorolac [Toradol] 10 mg PO Q6H PRN #20 tablet PRN Reason: Pain Referrals: KRISTIN VAZ MD [Staff Physician] - 3-5 Days Forms: Work/School Release Form(ED) Time of Disposition: 11:29 Print Language: [place]
[2021-03-20 10:49] LABS: Bacteria,Urine 3+ /HPF (Negative); Bilirubin,Urine NEG (Negative); Blood,Urine SM (Negative); Color,Urine Yellow (Yellow); Mucus,Urine 1+ /HPF
[2021-03-20 11:10] LABS: WBC,Urine > 182.0 /HPF (0.0-6.0)
[2021-03-20 11:12] LABS: HCG Qualitative,Urine Negative (Negative)
== END 2021-03-20 11:37 | disposition home or self-care (01) ==
LOC: ED 09:36
DX: N39.0 Urinary tract infection, site not specified (principal); R51.9 Headache, unspecified; M79.18 Myalgia, other site; Z98.890 Other specified postprocedural states; Z79.899 Other long term (current) drug therapy
CPT/HCPCS: 81001; 81025; 87400; 99283

== ENCOUNTER 2021-05-08 10:02 | Emergency (ER) | payer SELFPAY ==
[2021-05-08 10:09] VITALS: BP 111/62
--- NOTE | 2021-05-08 11:23 | Emergency Department Report ---
- General Chief complaint: Extremity Problem,Nontraumatic Stated complaint: RIGHT HAND SWELLING Time Seen by Provider: 05/08/21 11:06 Source: patient Mode of arrival: Ambulatory Limitations: No Limitations - History of Present Illness Initial comments: Patient is a 30-year-old female presents emergency room with complaints of a rash that began to the hand approximately 1 week ago. Patient states that she recently changed her detergent. 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 She states that she frequently washes her hands. She denies any fall or injury. She states that she has been using tea tree oil with relief of the rash. She denies a rash anywhere else. She denies any numbness, weakness, difficulty moving the hand. No past medical history. No known allergies. Last menstrual cycle 2 weeks ago. - Related Data Previous Rx's Medication Instructions Recorded Last Taken Type Ketorolac [Toradol] 10 mg PO Q6H PRN #20 tablet 03/20/21 Unknown Rx cephALEXin [Keflex] 500 mg PO Q6HR #40 capsule 03/20/21 Unknown Rx Hydrocortisone 1% [Hydrocortisone 1 applicatio TP TID #1 tube 05/08/21 Unknown Rx 1% CREAM] Loratadine 10 mg PO DAILY #10 tablet 05/08/21 Unknown Rx Allergies Allergy/AdvReac Type Severity Reaction Status Date / Time No Known Allergies Allergy Verified 03/20/21 09:37 Abscess Boil HPI - HPI Chief Complaint: Extremity Problem,Nontraumatic Stated Complaint: RIGHT HAND SWELLING Time Seen by Provider: 05/08/21 11:06 Home Medications: Previous Rx's Medication Instructions Recorded Last Taken Type Ketorolac [Toradol] 10 mg PO Q6H PRN #20 tablet 03/20/21 Unknown Rx cephALEXin [Keflex] 500 mg PO Q6HR #40 capsule 03/20/21 Unknown Rx Hydrocortisone 1% [Hydrocortisone 1 applicatio TP TID #1 tube 05/08/21 Unknown Rx 1% CREAM] Loratadine 10 mg PO DAILY #10 tablet 05/08/21 Unknown Rx Allergies/Adverse Reactions: Allergies Allergy/AdvReac Type Severity Reaction Status Date / Time No Known Allergies Allergy Verified 03/20/21 09:37 ED Review of Systems ROS: Stated complaint: RIGHT HAND SWELLING Other details as noted in HPI Comment: All other systems reviewed and negative ED Past Medical Hx - Past Medical History Previous Medical History?: No Hx Hypertension: No Hx Congestive Heart Failure: No Hx Diabetes: No Hx Deep Vein Thrombosis: No Hx Renal Disease: No Hx Sickle Cell Disease: No Hx Seizures: No Hx Asthma: No Hx COPD: No Hx HIV: No Additional medical history: Childbirth x 4 - Surgical History Past Surgical History?: Yes Additional Surgical History: X 4 - Social History Smoking Status: Never Smoker - Medications Home Medications: Home Medications Medication Instructions Recorded Confirmed Last Taken Type Ketorolac [Toradol] 10 mg PO Q6H PRN #20 tablet 03/20/21 Unknown Rx cephALEXin [Keflex] 500 mg PO Q6HR #40 capsule 03/20/21 Unknown Rx Hydrocortisone 1% [Hydrocortisone 1 applicatio TP TID #1 tube 05/08/21 Unknown Rx 1% CREAM] Loratadine 10 mg PO DAILY #10 tablet 05/08/21 Unknown Rx ED Physical Exam - General Limitations: No Limitations General appearance: alert, in no apparent distress - Head Head exam: Present: atraumatic, normocephalic - Eye Eye exam: Present: normal appearance - ENT ENT exam: Present: mucous membranes moist - Neurological Exam Neurological exam: Present: alert, oriented X3 - Psychiatric Psychiatric exam: Present: normal affect, normal mood - Skin Skin exam: Present: warm, dry, other (mild erythema and dry skin present to the right dorsal hand, a few small skin colored papules, no blistering, no skin denuding, no increased warmth, no hand ttp, FROM of the RUE, able to make a fist, neurovascularly intact) ED Course Vital Signs 05/08/21 10:06 Temperature 98.2 F Pulse Rate 84 Respiratory 16 Rate Blood Pressure 111/62 [Right] O2 Sat by Pulse 99 Oximetry ED Medical Decision Making - Medical Decision Making Patient is a 30-year-old female presents emergency room with complaints of a rash that began to the hand approximately 1 week ago. Patient states that she recently changed her detergent. 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 She states that she frequently washes her hands. She denies any fall or injury. She states that she has been using tea tree oil with relief of the rash. She denies a rash anywhere else. She denies any numbness, weakness, difficulty moving the hand. No past medical history. No known allergies. Last menstrual cycle 2 weeks ago. Vitals are normal. On exam mild erythema and dry skin present to the right dorsal hand, a few small skin colored papules, no blistering, no skin denuding, no increased warmth, no hand ttp, FROM of the RUE, able to make a fist, neurovascularly intact. Examination appears likely consistent with contact dermatitis. No signs of septic joint or cellulitis. There is no blistering or skin denuding. Patient given pres cription for medication. Advised patient Please use medication as prescribed. Follow-up with a primary care doctor. Follow-up with a webbing tacker. Return to emergency room for any new or worsening symptoms. Critical care attestation.: If time is entered above; I have spent that time in minutes in the direct care of this critically ill patient, excluding procedure time. ED Disposition Clinical Impression: Rash Disposition: 01 HOME / SELF CARE / HOMELESS Is pt being admited?: No Does the pt Need Aspirin: No Condition: Stable Instructions: Contact Dermatitis, [id number] Additional Instructions: Please use medication as prescribed. Follow-up with a primary care doctor. Follow-up with a webbing tacker. Return to emergency room for any new or worsening symptoms. [facility] Address: [address] [place] [address] Quynh Silvestre MD Address: [address] [place] [address] Prescriptions: Hydrocortisone 1% [Hydrocortisone 1% CREAM] 1 applicatio TP TID #1 tube Loratadine 10 mg PO DAILY #10 tablet Referrals: KRISTIN VAZ MD [Staff Physician] - 3-5 Days [facility] [Provider Group] - 3-5 Days Forms: Work/School Release Form(ED) Time of Disposition: 11:22 Print Language: AMHARIC
== END 2021-05-08 12:04 | disposition home or self-care (01) ==
LOC: ED 10:02
DX: R21 Rash and other nonspecific skin eruption (principal)
CPT/HCPCS: 99282

== ENCOUNTER 2021-05-12 08:37 | Emergency (ER) | payer SELFPAY ==
[2021-05-12 08:46] VITALS: BP 132/72
--- NOTE | 2021-05-12 09:17 | Emergency Department Report ---
ED Rash HPI - HPI Chief Complaint: Skin Rash Stated Complaint: RASH Time Seen by Provider: 05/12/21 09:12 Duration: 2 weeks Location: Upper Extremities (Right hand) Severity: mild Other History: 30-year-old -[place] female presents to the emergency room stating she is has a rash to her right hand for greater than 2 weeks. She states that she has been followed by her jobs primary care provider but states that he does not do anything about it. Patient was seen in this emergency room earlier this month for the same complaint. She was placed on hydrocortisone cream. She was referred to her stranding machine operator. ED Review of Systems ROS: Stated complaint: RASH Other details as noted in HPI Comment: All other systems reviewed and negative ED Past Medical Hx - Past Medical History Hx Hypertension: No Hx Congestive Heart Failure: No Hx Diabetes: No Hx Deep Vein Thrombosis: No Hx Renal Disease: No Hx Sickle Cell Disease: No Hx Seizures: No Hx Asthma: No Hx COPD: No Hx HIV: No Additional medical history: Childbirth x 4 - Surgical History Additional Surgical History: X 4 - Social History Smoking Status: Never Smoker - Medications Home Medications: Home Medications Medication Instructions Recorded Confirmed Last Taken Type Ketorolac [Toradol] 10 mg PO Q6H PRN #20 tablet 03/20/21 Unknown Rx cephALEXin [Keflex] 500 mg PO Q6HR #40 capsule 03/20/21 Unknown Rx Hydrocortisone 1% [Hydrocortisone 1 applicatio TP TID #1 tube 05/08/21 Unknown Rx 1% CREAM] Loratadine 10 mg PO DAILY #10 tablet 05/08/21 Unknown Rx Rash Exam - Exam General: Vital signs noted. No distress. Alert and acting appropriately. HEENT: No Periorbital Edema, No Conjuctival Injection, No Chemosis, No Perioral Edema, No Tongue Edema, No Uvular Edema, No Compromised Airway, No Drooling Lungs: Yes Good Air Exchange, No Wheezes, No Ronchi, No Stridor, No Cough, No Labored Respirations, No Retractions, No Use of Accessory Muscles, No Other Abnormal Lung Sounds Heart: Yes Regular, No Murmur Skin: No Urticarial Rash, No Maculopapular Rash, No Morbilliform rash, No Bulla(e), No Excoriations, No Weeping, No Tenderness, No Erythema, No Edema, No Encrustations, No Other (I do not appreciate any rash on hands.) ED Course Vital Signs 05/12/21 08:45 Temperature 98.6 F Pulse Rate 91 H Respiratory 18 Rate Blood Pressure 132/72 [Left] O2 Sat by Pulse 100 Oximetry ED Medical Decision Making - Medical Decision Making 30-year-old -[place] female presents to the emergency room stating she is has a rash to her right hand for greater than 2 weeks. She states that she has been followed by her jobs primary care provider but states that he does not do anything about it. Patient was seen in this emergency room earlier this month for the same complaint. She was placed on hydrocortisone cream. She was referred to her stranding machine operator. Unfortunately do not appreciate a rash on her right hand. I discussed with patient she needs to follow-up back with her primary care provider or stranding machine operator. Critical care attestation.: If time is entered above; I have spent that time in minutes in the direct care of this critically ill patient, excluding procedure time. ED Disposition Clinical Impression: Rash Disposition: 01 HOME / SELF CARE / HOMELESS Is pt being admited?: No Does the pt Need Aspirin: No Condition: Stable Instructions: Rash, Adult, [id number] Additional Instructions: I recommend to follow-up with a stranding machine operator. Referrals: [facility] [Provider Group] - 3-5 Days Forms: Work/School Release Form(ED) Time of Disposition: 09:17
== END 2021-05-12 09:39 | disposition home or self-care (01) ==
LOC: ED 08:37
DX: R21 Rash and other nonspecific skin eruption (principal)
CPT/HCPCS: 99282

== ENCOUNTER 2021-06-03 04:48 | Emergency (ER) | payer SELFPAY ==
[2021-06-03 05:40] VITALS: BP 121/71
[2021-06-03] MEDS ORDERED: DICYCLOMINE 10 MG/5 ML ORAL LIQD PO ONE (06:36)
--- NOTE | 2021-06-03 06:36 | Emergency Department Report ---
ED General Adult HPI - General Chief complaint: Abdominal Pain Stated complaint: ABD PAIN Time Seen by Provider: 06/03/21 06:25 Source: patient Mode of arrival: Ambulatory Limitations: No Limitations - History of Present Illness Initial comments: 30-year-old morbid obese -[place] female presents to the emergency room stating she has had a 1 week history of body aches sore throat and intermittent abdominal pain at the epigastric area. She states that she feels nausea after eating. She denies any fever chills no vomiting. She denies any alcohol use cigarette use of marijuana use. She states she is unvaccinated. States that she was seen here last week and has been quarantine for Covid-like symptoms. Patient is taking nothing for her pain. Patient has not been tested for Covid. Onset/Timin -: week(s) Location: abdomen Severity scale (0 -10): 6 Consistency: intermittent Improves with: none Worsens with: eating Associated Symptoms: denies: chest pain, cough, diaphoresis, fever/chills, nausea/vomiting (No vomiting mild nausea after eating), shortness of breath, syncope Treatments Prior to Arrival: none - Related Data Previous Rx's Medication Instructions Recorded Last Taken Type Ketorolac [Toradol] 10 mg PO Q6H PRN #20 tablet 03/20/21 Unknown Rx cephALEXin [Keflex] 500 mg PO Q6HR #40 capsule 03/20/21 Unknown Rx Hydrocortisone 1% [Hydrocortisone 1 applicatio TP TID #1 tube 05/08/21 Unknown Rx 1% CREAM] Loratadine 10 mg PO DAILY #10 tablet 05/08/21 Unknown Rx Amoxicillin/Potassium Clav 1 each PO Q12H 7 Days #14 tablet 06/03/21 Unknown Rx [Augmentin 875-125 Tablet] Allergies Allergy/AdvReac Type Severity Reaction Status Date / Time latex AdvReac Itching Verified 06/03/21 05:39 ED Review of Systems ROS: Stated complaint: ABD PAIN Other details as noted in HPI Comment: All other systems reviewed and negative ED Past Medical Hx - Past Medical History Previous Medical History?: No Hx Hypertension: No Hx Congestive Heart Failure: No Hx Diabetes: No Hx Deep Vein Thrombosis: No Hx Renal Disease: No Hx Sickle Cell Disease: No Hx Seizures: No Hx Asthma: No Hx COPD: No Hx HIV: No Additional medical history: Childbirth x 4 - Surgical History Past Surgical History?: No Additional Surgical History: X 4 - Social History Smoking Status: Never Smoker - Medications Home Medications: Home Medications Medication Instructions Recorded Confirmed Last Taken Type Ketorolac [Toradol] 10 mg PO Q6H PRN #20 tablet 03/20/21 Unknown Rx cephALEXin [Keflex] 500 mg PO Q6HR #40 capsule 03/20/21 Unknown Rx Hydrocortisone 1% [Hydrocortisone 1 applicatio TP TID #1 tube 05/08/21 Unknown Rx 1% CREAM] Loratadine 10 mg PO DAILY #10 tablet 05/08/21 Unknown Rx Amoxicillin/Potassium Clav 1 each PO Q12H 7 Days #14 tablet 06/03/21 Unknown Rx [Augmentin 875-125 Tablet] ED Physical Exam - General Limitations: No Limitations General appearance: alert, in no apparent distress - Head Head exam: Present: atraumatic, normocephalic - Eye Eye exam: Present: normal appearance - ENT ENT exam: Present: mucous membranes moist, normal external ear exam - Neck Neck exam: Present: normal inspection, full ROM - Respiratory Respiratory exam: Present: normal lung sounds bilaterally. Absent: respiratory distress, accessory muscle use - Cardiovascular Cardiovascular Exam: Present: regular rate - GI/Abdominal GI/Abdominal exam: Present: soft, tenderness (Epigastric with deep palpation), normal bowel sounds. Absent: distended, guarding, rebound - Extremities Exam Extremities exam: Present: normal inspection, full ROM - Back Exam Back exam: Present: normal inspection, full ROM - Neurological Exam Neurological exam: Present: alert, oriented X3 - Psychiatric Psychiatric exam: Present: normal affect, normal mood - Skin Skin exam: Present: warm, dry, intact, normal color. Absent: rash ED Course Vital Signs 06/03/21 05:39 Temperature 98.4 F Pulse Rate 91 H Respiratory 16 Rate Blood Pressure 121/71 O2 Sat by Pulse 99 Oximetry ED Medical Decision Making - Lab Data Result diagrams: 06/03/21 07:34 06/03/21 07:34 Lab Results 06/03/21 06/03/21 06/03/21 Range/Units 05:50 07:34 07:34 WBC 8.7 (4.5-11.0) K/mm3 RBC 4.38 (3.65-5.03) M/mm3 Hgb 9.9 L (10.1-14.3) gm/dl Hct 30.4 (30.3-42.9) % MCV 69 L (79-97) fl MCH 23 L (28-32) pg MCHC 33 (30-34) % RDW 19.0 H (13.2-15.2) % Plt Count 395 (140-440) K/mm3 Lymph % (Auto) 26.8 (13.4-35.0) % Addison % (Auto) 9.0 H (0.0-7.3) % Eos % (Auto) 0.3 (0.0-4.3) % Baso % (Auto) 0.5 (0.0-1.8) % Lymph # (Auto) 2.3 (1.2-5.4) K/mm3 Addison # (Auto) 0.8 (0.0-0.8) K/mm3 Eos # (Auto) 0.0 (0.0-0.4) K/mm3 Baso # (Auto) 0.0 (0.0-0.1) K/mm3 Seg Neutrophils % 63.4 (40.0-70.0) % Seg Neutrophils # 5.5 (1.8-7.7) K/mm3 Sodium 139 (137-145) mmol/L Potassium 4.1 (3.6-5.0) mmol/L Chloride 102.8 (98-107) mmol/L Carbon Dioxide 21 L (22-30) mmol/L Anion Gap 19 mmol/L BUN 14 (7-17) mg/dL Creatinine 0.6 (0.6-1.2) mg/dL Estimated GFR > 60 ml/min BUN/Creatinine Ratio 23 % Glucose 100 (65-100) mg/dL Calcium 9.4 (8.4-10.2) mg/dL Total Bilirubin < 0.20 (0.1-1.2) mg/dL AST 11 (5-40) units/L ALT 10 (7-56) units/L Alkaline Phosphatase 81 (35-129) units/L Total Protein 7.3 (6.3-8.2) g/dL Albumin 4.4 (3.9-5) g/dL Albumin/Globulin Ratio 1.5 % Lipase 26 (13-60) units/L Urine Color (Yellow) Urine Turbidity (Clear) Urine pH (5.0-7.0) Ur Specific Wayne (1.003-1.030) Urine Protein (Negative) mg/dL Urine Glucose (UA) (Negative) mg/dL Urine Ketones (Negative) mg/dL Urine Blood (Negative) Urine Nitrite (Negative) Urine Bilirubin (Negative) Urine Urobilinogen (<2.0) mg/dL Ur Leukocyte Esterase (Negative) Urine WBC (Auto) (0.0-6.0) /HPF Urine RBC (Auto) (0.0-6.0) /HPF U Epithel Cells (Auto) (0-13.0) /HPF Urine Bacteria (Auto) (Negative) /HPF Urine Mucus /HPF Group A Strep Rapid Negative (Negative) 06/03/21 Range/Units Unknown WBC (4.5-11.0) K/mm3 RBC (3.65-5.03) M/mm3 Hgb (10.1-14.3) gm/dl Hct (30.3-42.9) % MCV (79-97) fl MCH (28-32) pg MCHC (30-34) % RDW (13.2-15.2) % Plt Count (140-440) K/mm3 Lymph % (Auto) (13.4-35.0) % Addison % (Auto) (0.0-7.3) % Eos % (Auto) (0.0-4.3) % Baso % (Auto) (0.0-1.8) % Lymph # (Auto) (1.2-5.4) K/mm3 Addison # (Auto) (0.0-0.8) K/mm3 Eos # (Auto) (0.0-0.4) K/mm3 Baso # (Auto) (0.0-0.1) K/mm3 Seg Neutrophils % (40.0-70.0) % Seg Neutrophils # (1.8-7.7) K/mm3 Sodium (137-145) mmol/L Potassium (3.6-5.0) mmol/L Chloride (98-107) mmol/L Carbon Dioxide (22-30) mmol/L Anion Gap mmol/L BUN (7-17) mg/dL Creatinine (0.6-1.2) mg/dL Estimated GFR ml/min BUN/Creatinine Ratio % Glucose (65-100) mg/dL Calcium (8.4-10.2) mg/dL Total Bilirubin (0.1-1.2) mg/dL AST (5-40) units/L ALT (7-56) units/L Alkaline Phosphatase (35-129) units/L Total Protein (6.3-8.2) g/dL Albumin (3.9-5) g/dL Albumin/Globulin Ratio % Lipase (13-60) units/L Urine Color Yellow (Yellow) Urine Turbidity Hazy (Clear) Urine pH 6.0 (5.0-7.0) Ur Specific Wayne 1.023 (1.003-1.030) Urine Protein <15 mg/dl (Negative) mg/dL Urine Glucose (UA) Neg (Negative) mg/dL Urine Ketones Neg (Negative) mg/dL Urine Blood Sm (Negative) Urine Nitrite Neg (Negative) Urine Bilirubin Neg (Negative) Urine Urobilinogen 2.0 (<2.0) mg/dL Ur Leukocyte Esterase Sm (Negative) Urine WBC (Auto) 21.0 H (0.0-6.0) /HPF Urine RBC (Auto) 4.0 (0.0-6.0) /HPF U Epithel Cells (Auto) 5.0 (0-13.0) /HPF Urine Bacteria (Auto) 1+ (Negative) /HPF Urine Mucus Few /HPF Group A Strep Rapid (Negative) Critical care attestation.: If time is entered above; I have spent that time in minutes in the direct care of this critically ill patient, excluding procedure time. ED Disposition Clinical Impression: Suspected COVID-19 virus infection, UTI (urinary tract infection) Disposition: 01 HOME / SELF CARE / HOMELESS Is pt being admited?: No Does the pt Need Aspirin: No Condition: Stable Instructions: Abdominal Pain (ED), Urinary Tract Infection, Adult, [id number], Prevent the Spread of COVID-19 if You Are Sick - CDC, COVID-19: How to Protect Yourself and Others - CDC, COVID-19 Frequently Asked Questions Additional Instructions: Urinalysis shows you have a urinary tract infection. Strep test is negative. Complete antibiotics for your urinary tract infection. This antibiotic also covers upper respiratory infections as well as throat infections. Be sure to increase your fluid intake and follow-up with your primary care provider. Your symptoms appear most consistent with a nonspecific viral syndrome. However, given this current pandemic, COVID-19 is in the differential of possibilities. Despite your previous negative COVID-19 test, I do recommend repeat outpatient Covid 19 testing. In the meantime, isolate/quarantine yourself and stay away from anyone who is elderly, immunocompromised or chronically ill. You can use ibuprofen every 6-8 hours and Tylenol every 4-8 hours, using the dosing on the back of the bottle, as needed for any fever or body aches. Return to the emergency department with any worsening of your symptoms, development of chest pain or shortness of breath, or with any acute distress. Prescriptions: Amoxicillin/Potassium Clav [Augmentin 875-125 Tablet] 1 each PO Q12H 7 Days #14 tablet Referrals: PRIMARY CARE, [Primary Care Provider] - 3-5 Days [facility] [Provider Group] - 3-5 Days Forms: Work/School Release Form(ED) Time of Disposition: 10:12
[2021-06-03 07:47] LABS: Basophils % (Auto) 0.5 % (0.0-1.8); Eosinophils % (Auto) 0.3 % (0.0-4.3); Hematocrit 30.4 % (30.3-42.9); Hemoglobin 9.9 gm/dl (10.1-14.3); Lymphocytes # (Auto) 2.3 K/mm3 (1.2-5.4); Lymphocytes % (Auto) 26.8 % (13.4-35.0); Mean Corpuscular HGB Conc 33 % (30-34); Monocytes # (Auto) 0.8 K/mm3 (0.0-0.8); Platelet Count 395 K/mm3 (140-440); Red Blood Count 4.38 M/mm3 (3.65-5.03)
[2021-06-03 07:49] LABS: Mean Corpuscular Volume 69 fl (79-97)
[2021-06-03 08:18] LABS: Alanine Aminotransferase 10 units/L (7-56); Albumin 4.4 g/dL (3.9-5); Blood Urea Nitrogen 14 mg/dL (7-17); Calcium 9.4 mg/dL (8.4-10.2); Hemolysis Index 4
[2021-06-03 08:19] LABS: BUN/Creatinine Ratio 23
[2021-06-03 08:52] LABS: Bacteria,Urine 1+ /HPF (Negative); Bilirubin,Urine NEG (Negative); Blood,Urine SM (Negative); Color,Urine Yellow (Yellow); Mucus,Urine FEW /HPF; Protein,Urine <15 mg/dL mg/dL (Negative)
== END 2021-06-03 10:22 | disposition home or self-care (01) ==
LOC: ED 04:48
DX: N39.0 Urinary tract infection, site not specified (principal); Z20.822 Contact with and (suspected) exposure to COVID-19; Z91.040 Latex allergy status
CPT/HCPCS: 36415; 80053; 81001; 83690; 85025; 87086; 87116; 87430; 99283